=== PATIENT | female | born 1935 ===

== ENCOUNTER 2024-04-14 08:23 | Emergency (ER) | payer OTHER ==
[~2024-04-14] VITALS: Ht 154.9 cm; Wt 76.7 kg
[~2024-04-14 08:23] MED LIST: ACET325 PO; ACET500; ASPI325EC PO; ATECHL; ATECHL PO; ATEN25 PO; Acetaminophen1 EAC2; CENTRUM SILVER1 EAC2; CITRACAL + D M1 EACH; DIGESTIVE PROB1 EACH; ENOX40I SC; FIBER-TABS625 MG; LEVSOD100; LEVSOD100 PO; LIDOCAINE HCL120 GM TP; OXYC5 PO; POTA10T PO; POTCHL10ER PO; PROM25 PO; Percocet 5-3251 EACH PO; Prednisone20 MG PO; SYNTHROID; Zovirax800 MG PO
[2024-04-14] MEDS ORDERED: Mag Hydrox/AL Hydrox/Simeth 30 ML UDC PO ONE (10:35)
[2024-04-14 10:56] VITALS: BP 129/97
[2024-04-14] MEDS ORDERED: Lidocaine 4% 1 Patch TOP ONE (11:05)
[2024-04-14] MEDS ORDERED: Methocarbamol 500 MG Tab PO ONE (11:20)
[2024-04-14] MEDS ORDERED: LIDO700A20 TOP (12:13)
[2024-04-14] MEDS ORDERED: Methocarbamol500 MG PO (12:13)
== END 2024-04-14 12:18 | disposition home or self-care (01) ==
LOC: ER 08:23
DX: S06.0XAA Concussion with loss of consciousness status unknown, initial encounter (principal); S16.1XXA Strain of muscle, fascia and tendon at neck level, initial encounter; S80.12XA Contusion of left lower leg, initial encounter; S80.11XA Contusion of right lower leg, initial encounter; D32.9 Benign neoplasm of meninges, unspecified; K44.9 Diaphragmatic hernia without obstruction or gangrene; I10 Essential (primary) hypertension; W01.0XXA Fall on same level from slipping, tripping and stumbling without subsequent striking against object, initial encounter; Z79.899 Other long term (current) drug therapy; Z88.0 Allergy status to penicillin; Z88.2 Allergy status to sulfonamides; Z88.1 Allergy status to other antibiotic agents; Z91.048 Other nonmedicinal substance allergy status
CPT/HCPCS: 70450; 71046; 99284-25; A9270